=== PATIENT | female | born 1965 | race Two or more races ===

== ENCOUNTER 2024-02-11 12:04 | Inpatient (IN) | payer MEDICAID, OTHER ==
[~2024-02-11] VITALS: Ht 172.7 cm; Wt 112.0 kg
--- NOTE | 2024-02-11 12:28 | ED.PDOC ---
HPI Comments 58Y F with PMHx DM, anxiety, and depression presents to ED via EMS for chief complaint chest pain x2hrs. Pt described chest pain as pressure and is rated at a pain level of 5/10. Chest pain is substernal and non-radiating. Additional symptoms include SOB, headache, nausea, vomiting, and dizziness. Pt took Aspirin at home. Upon EMS arrival, BS 210. EMS provided pt with Zofran IV. Pt denies h/o stroke. Pt experienced similar chest pain many yrs ago. Pt is currently on abx A moxicillin for sinus infection. Chief Complaint: Chest Pain Time Seen by MD: 12:04 Primary Care Provider: SRAVAN Rizo Notes: Medications, Allergies Allergies: Coded Allergies: NO KNOWN ALLERGIES (Unverified , 02/11/24) Information Source: Patient Mode of Arrival: EMS Brought in by: EMS Severity: Mild Timing: Hours Duration: Since onset Prehospital treatment: Other (IV Zofran) Location: Substernal Radiation: No Radiation Quality: Pressure Onset: At Rest Cardiac Risk Factors: Diabetes PE Risk Factors: None History of: None Modifying Factors: Nothing Associated Signs and Symptoms: SOB, Other Past Medical History PAST MEDICAL HISTORY: Anxiety, Depression, DM Surgical History: Denies all surgeries 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 Family History Family History: Unknown Social History Smoker: Unknown Alcohol: Unknown Drugs: Unknown Lives In: Home Constitutional: denies: chills, diaphoresis, fatigue, fever, malaise, sweats, weakness, others EENTM: denies: blurred vision, double vision, ear bleeding, ear discharge, ear drainage, ear pain, ear ringing, eye pain, eye redness, hearing loss, mouth pain, mouth swelling, nasal discharge, nose bleeding, nose congestion, nose pain, photophobia, tearing, throat pain, throat swelling, voice changes, others Respiratory: reports: shortness of breath; denies: cough, hemoptysis, orthopnea, SOB at rest, SOB with excertion, stridor, wheezing, others Cardiovascular: reports: chest pain; denies: dizzy spells, diaphoresis, Dyspnea on exertion, edema, irregular heart beat, left arm pain, lightheadedness, palpitations, PND, syncope, others Gastrointestinal: reports: nausea; denies: abdomen distended, abdominal pain, blood streaked bowels, constipated, diarrhea, dysphagia, difficulty swallowing, hematemesis, melena, poor appetite, poor fluid intake, rectal bleeding, rectal pain, vomiting, others Genitourinary: denies: abnormal vagina bleeding, burning, dyspareunia, dysuria, flank pain, frequency, hematuria, incontinence, pain, , vagina discharge, urgency, others Neurological: reports: dizziness, headache; denies: fainting, left sided numbness, left sided weakness, numbness, paresthesia, pre-existing deficit, right sided numbness, right sided weakness, seizure, speech problems, tingling, tremors, weakness, others Musculoskeletal: denies: back pain, gout, joint pain, joint swelling, muscle pain, muscle stiffness, neck pain, others Integumetry: denies: bruises, change in color, change in hair/nails, dryness, laceration, lesions, lumps, rash, wounds, others Allergic/Immunocompromised: denies: Difficulty Healing, Frequent Infections, Hives, Itching, others Hematologic/Lymphatic: denies: anemia, blood clots, easy bleeding, easy brui sing, swollen glands, others Endocrine: denies: excessive hunger, excessive sweating, excessive thirst, ex cessive urination, flushing, intolerance to cold, intolerance to heat, unexplained weight gain, unexplained weight loss, others Psychiatric: denies: anxiety, bipolar disorder, depression, hopeless, panic disorder, schizophrenia, sleepless, suicidal, others All Other Systems: Reviewed and Negative Physical Exam General Appearance: Moderate Distress, Normal HEENT: Normal ENT Inspection, Pharynx Normal, TMs Normal Neck: Full Range of Motion, Non-Tender, Normal, Normal Inspection Respiratory: Chest Non-Tender, Lungs Clear, No Accessory Muscle Use, No Respiratory Distress, Normal Breath Sounds Cardiovascular: No Edema, No JVD, No Murmur, No Gallop, Normal Peripheral Pulses, Regular Rate/Rhythm Breast Exam: Deferred Gastrointestinal: No Organomegaly, Non Tender, No Pulsatile Mass, Normal Bowel Sounds, Soft Genitalia: Deferred Pelvic: Deferred Rectal: Deferred Extremities: No calf tenderness, Normal capillary refill, Normal inspection, Normal range of motion, Non-tender, No pedal edema Musculoskeletal : Apperance: Normal Neurologic: Alert, 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 Was a procedure done?: No CP Differential Dx Differential Diagnosis: A-fib, A-Flutter, Angina, Anxiety / Panic Attack, Electrolyte Disorder X-Ray, Labs, Meds, VS Vital Signs Date Time Temp Pulse Resp B/P (MAP) Pulse Ox O2 Delivery O2 Flow Rate FiO2 02/11/24 12:07 104 02/11/24 12:06 97.5 110 18 121/88 (99) 100 Lab Test 02/11/24 16:10 02/11/24 13:40 02/11/24 12:31 Range/Units Troponin I High Sensitivity Pending < 3 L < 3 L </=34 ng/L White Blood Count 20.7 H 4.4-10.8 10^3/uL Red Blood Count 5.68 H 4.0-5.20 10^6/uL Hemoglobin 16.9 H 12.2-16.2 g/dL Hematocrit 50.4 H 36.0-46.0 % Mean Corpuscular Volume 88.8 80.0-100.0 fL Mean Corpuscular Hemoglobin 29.7 28.0-32.0 pg Mean Corpuscular Hemoglobin Concent 33.5 32.0-36.0 g/dL Red Cell Distribution Width 14.6 H 11.8-14.3 % Platelet Count 285 140-450 10^3/uL Mean Platelet Volume 9.3 6.9-10.8 fL Neutrophils (%) (Auto) 83.8 H 37.0-80.0 % Lymphocytes (%) (Auto) 10.7 10.0-50.0 % Monocytes (%) (Auto) 3.9 0.0-12.0 % Eosinophils (%) (Auto) 1.2 0.0-7.0 % Basophils (%) (Auto) 0.4 0.0-2.0 % Neutrophils # (Auto) 17.3 H 1.6-8.6 10 ^3/uL Lymphocytes # (Auto) 2.2 0.4-5.4 10 ^3/uL Monocytes # (Auto) 0.8 0-1.3 10 ^3/uL Eosinophils # (Auto) 0.3 0-0.8 10 ^3/uL Basophils # (Auto) 0.1 0-0.2 10 ^3/uL Nucleated Red Blood Cells 0.1 % Sodium Level 140 136-145 mmol/L Potassium Level 3.5 3.5-5.1 mmol/L Chloride Level 106 98-107 mmol/L Carbon Dioxide Level 24 20-31 mmol/L Anion Gap 10 5-15 Blood Urea Nitrogen 14 9-23 mg/dL Creatinine 0.76 0.550-1.02 mg/dL Glomerular Filtration Rate Calc 92 >90 mL/min BUN/Creatinine Ratio 18.4 10.0-20.0 Serum Glucose 244 H 74-106 mg/dL Calcium Level 10.7 H 8.7-10.4 mg/dL Patient alert. Complaining of chest pain. Emotional. Tachycardia. Blood pressure within normal limits. Saturation pristine on room air. EKG reviewed does not show any acute changes. Continues to have chest pain. Was given aspirin. Was given nitro. Reviewed her previous visit. Explained to the patient. Continue cardiac monitoring. Time of 1ST Reevaluation: 12:34 Reevaluation 1ST: Unchanged Patient Education/Counseling: Diagnosis, Treatment Family Education/Counseling: No Family Present Departure 1 Departure Time of Disposition: 12:56 Impression: Primary Impression: Chest pain of unknown etiology Additional Impressions: Uncontrolled diabetes mellitus Qualified Codes: E13.65 - Other specified diabetes mellitus with hyperglycemia Sepsis Qualified Codes: A41.9 - Sepsis, unspecified organism Gastroenteritis Disposition: ADMITTED INPATIENT Admit to: Med Surg Condition: Guarded Critical Care Note Critical Care Time?: Yes (45 min-critical care time only) Stability Stability form required: No Heart Score Heart Score: Heart Score Response (Comments) Value History Slightly Suspicious 0 EKG Normal 0 Age 45-64 1 Risk Factors 1 or 2 risk factors 1 Troponin Normal limit 0 Total 2 I personally scribed for VENKATA FELIX MD ([email or web address]) on 02/11/24 at 12:28. Electronically submitted by Marleny Olson ([email or web address]). VENKATA FELIX MD Feb 11, 2024 12:28
--- NOTE | 2024-02-11 12:28 | ECG ---
[facility] Test Date: 2024-02-11 Test Time: 12:07:13 Pat Name: Richelle Sarmiento Department: er Room: [address] [place] [address] Gender: F Dice Person: luis : 1965 Requested By: VENKATA FELIX Order Number: [id number] Reading MD: Andres Turner Measurements Intervals [place] Rate: 104 P: 20 ND: 165 QRS: 32 QRSD: 103 T: 29 QT: 335 QTc: 441 Interpretive Statements Sinus tachycardia Probable left atrial enlargement Consider anterior infarct Baseline wander in lead(s) II,V1,V2,V3,V4,V5,V6 Electronically Signed On 02-21-2024 12:48:18 PST by Andres Turner Please click the below link to view image of tracing.
[2024-02-11 12:55] LABS: Basophils # (auto) 0.1 10 ^3/uL (0-0.2); Basophils % (auto) 0.4 % (0.0-2.0); Eosinophils # (auto) 0.3 10 ^3/uL (0-0.8); Eosinophils % (auto) 1.2 % (0.0-7.0); Hematocrit 50.4 % (36.0-46.0); Hemoglobin 16.9 g/dL (12.2-16.2); Lymphocytes # (auto) 2.2 10 ^3/uL (0.4-5.4); Lymphocytes % (auto) 10.7 % (10.0-50.0); Mean Corpuscular Hemoglobin 29.7 pg (28.0-32.0); Mean Corpuscular Hgb Conc. 33.5 g/dL (32.0-36.0); Mean Corpuscular Volume 88.8 fL (80.0-100.0); Monocytes # (auto) 0.8 10 ^3/uL (0-1.3); Monocytes % (auto) 3.9 % (0.0-12.0); Neutrophils # (auto) 17.3 10 ^3/uL (1.6-8.6); Neutrophils % (auto) 83.8 % (37.0-80.0); Nucleated Red Blood Cells % 0.1 %; Platelet Count (auto) 285 10^3/uL (140-450); Red Blood Cells 5.68 10^6/uL (4.0-5.20); Red Cell Distribution Width 14.6 % (11.8-14.3); White Blood Cell 20.7 10^3/uL (4.4-10.8)
[2024-02-11 13:04] LABS: Chloride 106 mmol/L (98-107); Potassium 3.5 mmol/L (3.5-5.1); Sodium 140 mmol/L (136-145)
[2024-02-11 13:05] LABS: Anion Gap 10 (5-15); Calcium 10.7 mg/dL (8.7-10.4); Carbon Dioxide 24 mmol/L (20-31)
[2024-02-11 13:10] LABS: BUN/Creatinine Ratio 18.4 (10.0-20.0); Blood Urea Nitrogen 14 mg/dL (9-23); Glucose 244 mg/dL (74-106)
[2024-02-11 17:09] VITALS: PULSE 130; RESP 19; O2SAT 96
--- NOTE | 2024-02-11 17:12 | DVHHP2 ---
History of Present Illness Reason for Visit: Chest pain of unknown etiology History of Present Illness The patient is a 58-year-old female with past medical history of anxiety, depression, and diabetes mellitus who presented to [facility] ED with complaint of chest pain. Patient reports symptoms progressively get worse with nonradiating substernal chest pain, rating 5/10 numeric scale, associated headache, shortness a breath, nausea, vomiting, dizziness, getting worse today that prompted this visit. Patient was seen and evaluated in the ED, laboratory data shows WBC 20.7, hemoglobin 16.9, hematocrit 50.4, platelets 285, sodium 140, potassium 3.5, BUN 14, creatinine 0.76, glucose 244, troponin 3, calcium 10.7. Patient was started on IV antibiotic regimen Rocephin, please see medication orders section in the computer. On my assessment, patient denied chest pain at this moment, no headache, no dizziness, no diaphoresis, no palpitation, no shortness of breath, no nausea, no vomiting at this moment, no fever, no chills. Patient was admitted for further evaluation and medical management. Past Medical History Anxiety, Depression, DM Past Surgical History Denies all surgeries Family History Reviewed, noncontributory to the management of this case. Past Social History The patient lives at home, denies smoking, alcohol or illicit drugs abuse. Review of Systems Constitutional: Yes: Weakness; No: Fever, Chills, Sweats, Malaise, Other Eyes: No: Pain, Vision change, Conjunctivae inflammation, Eyelid inflammation, Other, Redness ENT: No: Ear pain, Ear discharge, Nose pain, Nose discharge, Nose congestion, Mouth pain, Mouth swelling, Throat pain, Throat swelling, Other Respiratory: Shortness of breath; No: Cough, Dry, SOB with excertion, Wheezing, Hemoptysis, Pleuritic Pain, Sputum, Wheezing, Other Cardiovascular: Chest Pain; No: Palpitations, Orthopnea, Paroxysmal Noc. Dyspnea, Edema, Lt Headedness, Other Gastrointestinal: Nausea; No: Vomiting, Abdominal Pain, Diarrhea, Constipation, Melena, Hematochezia, Other Genitourinary: No Dysuria, No Frequency, No Incontinence, No Hematuria, No Retention, No Other Musculoskeletal: No: other, neck pain, shoulder pain, arm pain, back pain, hand pain, leg pain, foot pain Skin: No: Rash, Lesions, Jaundice, Bruising, Other Neurological: Other (Headache, dizziness.); No: Weakness, Numbness, Incoordination, Change in speech, Confusion, Seizures Allergies: Coded Allergies: NO KNOWN ALLERGIES (Unverified , 02/11/24) Exam Vital Signs Vital Signs Date Time Temp Pulse Resp B/P (MAP) Pulse Ox O2 Delivery O2 Flow Rate FiO2 02/11/24 17:09 129 18 160/92 (114) 96 02/11/24 12:06 97.5 General Appearance: Alert, Oriented X3, Cooperative, No acute distress HEENT: Atraumatic, PERRLA, EOMI, Mucous membr. moist/pink Respiratory: Clear to auscultation, Normal air movement Cardiovascular: Regular rate, Normal S1, Normal S2, No murmurs Abdominal: Normal bowel sounds, Soft, No tenderness, No hepatospenomegaly, No masses Extremities: No clubbing, No cyanosis, No edema, Normal pulses, No tenderness/swelling Skin: No rashes, No breakdown, No significant lesion Neuro: Normal gait, Normal speech, Strength at 5/5 X4 ext, Normal tone, Sensation intact, Cranial nerves 3-12 NL, Reflexes 2+ Psych/Mental Status: Mental status NL, Mood NL Labs/Xrays Labs Test 02/11/24 16:39 02/11/24 16:10 02/11/24 12:31 Range/Units Troponin I High Sensitivity < 3 L </=34 ng/L White Blood Count 20.7 H 4.4-10.8 10^3/uL Red Blood Count 5.68 H 4.0-5.20 10^6/uL Hemoglobin 16.9 H 12.2-16.2 g/dL Hematocrit 50.4 H 36.0-46.0 % Mean Corpuscular Volume 88.8 80.0-100.0 fL Mean Corpuscular Hemoglobin 29.7 28.0-32.0 pg Mean Corpuscular Hemoglobin Concent 33.5 32.0-36.0 g/dL Red Cell Distribution Width 14.6 H 11.8-14.3 % Platelet Count 285 140-450 10^3/uL Mean Platelet Volume 9.3 6.9-10.8 fL Neutrophils (%) (Auto) 83.8 H 37.0-80.0 % Lymphocytes (%) (Auto) 10.7 10.0-50.0 % Monocytes (%) (Auto) 3.9 0.0-12.0 % Eosinophils (%) (Auto) 1.2 0.0-7.0 % Basophils (%) (Auto) 0.4 0.0-2.0 % Neutrophils # (Auto) 17.3 H 1.6-8.6 10 ^3/uL Lymphocytes # (Auto) 2.2 0.4-5.4 10 ^3/uL Monocytes # (Auto) 0.8 0-1.3 10 ^3/uL Eosinophils # (Auto) 0.3 0-0.8 10 ^3/uL Basophils # (Auto) 0.1 0-0.2 10 ^3/uL Nucleated Red Blood Cells 0.1 % Sodium Level 140 136-145 mmol/L Potassium Level 3.5 3.5-5.1 mmol/L Chloride Level 106 98-107 mmol/L Carbon Dioxide Level 24 20-31 mmol/L Anion Gap 10 5-15 Blood Urea Nitrogen 14 9-23 mg/dL Creatinine 0.76 0.550-1.02 mg/dL Glomerular Filtration Rate Calc 92 >90 mL/min BUN/Creatinine Ratio 18.4 10.0-20.0 Serum Glucose 244 H 74-106 mg/dL Calcium Level 10.7 H 8.7-10.4 mg/dL Assessment/Plan Assessment/Plan Chest pain of unknown etiology Uncontrolled diabetes mellitus Generalized weakness Other specified diabetes mellitus with hyperglycemia Sepsis, unspecified organism Plan 1. Admit to telemetry unit 2. Breathing treatment 3. Pain control management 4. IV antibiotic management 5. Management of fluids and electrolytes 6. Consultation for hospitalist 7. Diagnostic test chest x-ray 8. DVT prophylaxis-on aspirin 9. Repeat labs CBC, CMP in a.m. 10. Home medication reviewed and reconciled 11. Continue with current medical management 12. Treatment plan discussed with patient and RN. Patient verbalized understanding. Plan discussed with: Patient, Other (RN) Problem List: (1) Chest pain of unknown etiology (2) Uncontrolled diabetes mellitus (3) Generalized weakness (4) Sepsis, unspecified organism (5) Other specified diabetes mellitus with hyperglycemia Date of Service: Feb 11, 2024 Billing Provider: MATILDA GOODWIN DNP Common Visit Codes: [id number] INP/OBS CARE (HIGH) MATILDA GOODWIN DNP Feb 11, 2024 17:12
[2024-02-11] MEDS ORDERED: DEXTROSE (50%) 50ML SYRG IV PRN (17:15)
[2024-02-11] MEDS ORDERED: NITROGLYCERIN 0.4 MG SL TAB SL PRN (17:15)
[2024-02-11] MEDS: SODIUM CHLORIDE 0.9% 1,000 ML IV ONE ×2 (17:16)
[2024-02-11] MEDS: metroNIDAZOLE 500MG/100ML 100 ML IV ONE (17:18)
[2024-02-11] MEDS: cefTRIAXone 1GM/50ML D5W 50 ML IV ONE (17:18)
[2024-02-11 17:29] LABS: Lactic Acid w/Reflex 4.4 mmol/L (0.4-2.0)
--- NOTE | 2024-02-11 18:25 | DVH ---
Exam: CT CT AB PEL WO CON-NO ORAL OR IV History: enteritis Comparison Study: None available at time of dictation. TECHNIQUE: Multidetector CT of the abdomen was performed from lung bases to pubic symphysis. Imaging was performed without IV contrast. Axial, coronal and sagittal multiplanar reformats were obtained fr om the axial data set by the technologist. Radiation Dose Information: CT Dose: CTDI volume is 22.23 mGy. Dose-length product is 1457.41 mGy*cm FINDINGS: Evaluation of solid organs is limited due to lack of intravenous contrast use. Findings: Lung Bases: No acute or significant lung base finding. Normal heart size. No pleural effusion. Tra ce pericardial effusion Liver: The liver is normal in size. No focal lesions. Gallbladder and Biliary Tree: Gallbladder has been surgically removed. Spleen: Unremarkable Pancreas: The pancreas is grossly normal in appearance. Adrenal Glands: Unremarkable Kidneys: Kidneys are grossly normal without calculi or hydronephrosis. Bladder: Grossly unremarkable for degree of distention. Bowel: The stomach is grossly normal in appearance. Fluid-filled stomach and nondilated but fluid-martin led small bowel consistent with gastroenteritis. Small bowel and colon are normal in caliber and dist ribution. The appendix is not visualized; however, no secondary findings of acute appendicitis ident ified. Ascites: Absent Lymphadenopathy: No mesenteric, retroperitoneal or periportal lymphadenopathy. Abdominal Wall and Mesentery: Unremarkable. Vasculature: The visualized abdominal aorta is normal in size and caliber. Evaluation of abdominal a nd pelvic vessels is limited due to lack of intravenous contrast. Pelvic Organs: Unremarkable Musculoskeletal: No aggressive focal bony lesions, acute fractures or dislocation. Soft tissues: Unremarkable IMPRESSION: 1. Trace pericardial effusion. 2. Fluid-filled stomach and small bowel without abnormal dilatation. Findings are consistent with gas troenteritis. 3. Gallbladder is been surgically removed. Radiation optimization: All CT scans at this facility use at least one of these dose optimization chasity hniques: automated exposure control mA and/or kV adjustment per patient size (includes targeted exam s where dose is matched to clinical indication) or iterative reconstruction.
[2024-02-11 20:04] LABS: Urine Bacteria None Seen /hpf (None Seen)
[2024-02-11 20:55] LABS: Urine Blood Negative /uL (Negative); Urine Clarity Clear (Clear); Urine Color Yellow (Yellow); Urine Protein, UAD Negative (Negative); Urine Specific Gravity 1.039 (1.001-1.035); Urine Urobilinogen Normal (Negative); Urine WBC 1 /hpf (0 - 5)
[2024-02-11] MEDS: HYDROcodone-ACET 5/325MG TAB PO PRN (21:16)
[2024-02-11] MEDS: ACCU-CHEK COMFORT CURVE STRIP VI SCH (22:12)
[2024-02-11] MEDS: SODIUM CHLOR 0.9% PF (SALINE LOCK) 10ML VIAL/SYR IV SCH (22:13)
[2024-02-11] MEDS: metroNIDAZOLE 500MG/100ML 100 ML IV SCH (22:17)
[2024-02-11] MEDS: InsuLIN REG 1unit/0.01ml Soln (100units/ml) SC SCH (22:19)
[2024-02-12] MEDS: ONDANSETRON HCL 4 MG/2 ML VIAL IV PRN (01:53)
[2024-02-12] MEDS: MORPHINE SULFATE INJ 2 MG/ml SYRG IV PRN (01:55)
[2024-02-12 04:45] LABS: Basophils # (auto) 0 10 ^3/uL (0-0.2); Basophils % (auto) 0.3 % (0.0-2.0); Eosinophils # (auto) 0.1 10 ^3/uL (0-0.8); Eosinophils % (auto) 0.7 % (0.0-7.0); Hematocrit 40.7 % (36.0-46.0); Hemoglobin 13.9 g/dL (12.2-16.2); Lymphocytes # (auto) 0.9 10 ^3/uL (0.4-5.4); Lymphocytes % (auto) 10.5 % (10.0-50.0); Mean Corpuscular Hemoglobin 30.3 pg (28.0-32.0); Mean Corpuscular Hgb Conc. 34.1 g/dL (32.0-36.0); Mean Corpuscular Volume 88.8 fL (80.0-100.0); Monocytes # (auto) 0.6 10 ^3/uL (0-1.3); Monocytes % (auto) 6.8 % (0.0-12.0); Neutrophils # (auto) 6.9 10 ^3/uL (1.6-8.6); Neutrophils % (auto) 81.7 % (37.0-80.0); Platelet Count (auto) 177 10^3/uL (140-450); Red Blood Cells 4.58 10^6/uL (4.0-5.20); Red Cell Distribution Width 14.6 % (11.8-14.3); White Blood Cell 8.5 10^3/uL (4.4-10.8)
[2024-02-12 05:05] LABS: Alanine Aminotransferase 214 U/L (7-40); Albumin 3.5 g/dL (3.2-4.8); Alkaline Phosphatase 115 U/L (46-116); Anion Gap 5 (5-15); Aspartate Aminotransferase 551 U/L (13-40); Blood Urea Nitrogen 11 mg/dL (9-23); Calcium 9.1 mg/dL (8.7-10.4); Carbon Dioxide 25 mmol/L (20-31); Chloride 110 mmol/L (98-107); Glucose 165 mg/dL (74-106); Potassium 3.7 mmol/L (3.5-5.1); Sodium 140 mmol/L (136-145); Total Protein 5.5 g/dL (5.7-8.2)
[2024-02-12] MEDS: InsuLIN REG 1unit/0.01ml Soln (100units/ml) SC SCH (06:43)
[2024-02-12 07:27] VITALS: PULSE 93; RESP 20; O2SAT 100
[2024-02-12] MEDS: cefTRIAXone 1GM/50ML D5W 50 ML IV SCH (09:10)
[2024-02-12] MEDS: ASPirin 81 mg TAB PO SCH (10:09)
[2024-02-12] MEDS: PANTOPRAZOLE 40 MG/10 ML VIAL INJ IV SCH (10:09)
[2024-02-12] MEDS: ACETAMINOPHEN 325 MG TAB PO PRN (11:34)
[2024-02-12 12:48] VITALS: BP 132/72; PULSE 76; PULSE 80; RESP 17; TEMP 98.8; O2SAT 98
--- NOTE | 2024-02-12 13:25 | DVHPN2 ---
Changes from previous H/P or p: No Changes Eyes: No Pain, No Vision change, No Conjunctivae inflammation, No Eyelid inflammation, No Other, No Redness ENT: No Ear pain, No Ear discharge, No Nose pain, No Nose discharge, No Nose congestion, No Mouth pain, No Mouth swelling, No Throat pain, No Throat swelling, No Other Cardiovascular: Chest Pain; No Palpitations, No Orthopnea, No Paroxysmal Noc. Dyspnea, No Edema, No Lt Headedness, No Other Respiratory: No Cough, No Dry; Shortness of breath; No SOB with excertion, No Wheezing, No Hemoptysis, No Pleuritic Pain, No Sputum, No Other Gastrointestinal: Nausea; No Vomiting, No Abdominal Pain, No Diarrhea, No Constipation, No Melena, No Hematochezia, No Other Genitourinary: No Dysuria, No Frequency, No Incontinence, No Hematuria, No Retention, No Other Musculoskeletal: No other, No neck pain, No shoulder pain, No arm pain, No back pain, No hand pain, No leg pain, No foot pain Skin: No Rash, No Lesions, No Jaundice, No Bruising, No Other Objective Vitals Vital Signs Date Time Temp Pulse Resp B/P (MAP) Pulse Ox O2 Delivery O2 Flow Rate FiO2 02/12/24 12:00 84 02/12/24 12:00 18 121/73 (89) 98 02/12/24 07:27 Nasal Cannula* 2 28 02/11/24 20:00 98.0 98.0 Intake/Output Intake and Output 02/12/24 07:00 Intake Total 2410 ml Balance 2410 ml Intake IV Total 2410 ml Medications Current Medications Medications Dose Ordered Sig/Alber Route Start Time Stop Time Status Last Admin Dose Admin Aspirin 81 mg DAILY PO 02/12/24 10:00 02/12/24 10:09 81 MG Ceftriaxone Sodium 50 ml @ 100 mls/hr DAILY@09 IV 02/12/24 09:00 02/12/24 09:10 100 MLS/HR Pantoprazole Sodium 40 mg DAILY IV 02/12/24 10:00 02/12/24 10:09 40 MG Diagnostic Test (Pha) 1 strip ACHS 02/11/24 22:00 02/12/24 11:25 1 STRIP Insulin Human Regular HS SC 02/11/24 22:00 02/11/24 22:19 6 UNITS Insulin Human Regular AC SC 02/12/24 07:00 02/12/24 11:28 3 UNITS Dextrose 50 ml UD PRN IV 02/11/24 17:15 Sodium Chloride 10 ml Q8HR IV 02/11/24 22:00 02/12/24 05:53 10 ML Acetaminophen/ Hydrocodone Bitart 1 tab Q4HP PRN PO 02/11/24 17:15 02/12/24 10:17 1 TAB Ondansetron HCl 4 mg Q4HP PRN IV 02/11/24 17:15 02/12/24 01:53 4 MG Docusate Sodium 100 mg BIDPRN PRN PO 02/11/24 17:15 Acetaminophen 650 mg Q6HP PRN PO 02/11/24 17:15 02/12/24 11:34 650 MG Nitroglycerin 0.4 mg Q5MINP PRN SL 02/11/24 17:15 Morphine Sulfate 2 mg Q30M PRN IV 02/11/24 17:15 02/12/24 04:37 2 MG Metronidazole 100 ml @ 100 mls/hr Q8HR IV 02/11/24 22:00 02/12/24 05:53 100 MLS/HR Laboratory Results Laboratory Tests 02/12/24 04:16 Chemistry Test 02/12/24 04:16 Albumin 3.5 g/dL (3.2-4.8) Calcium Level 9.1 mg/dL (8.7-10.4) Total Protein 5.5 g/dL (5.7-8.2) L LFT Test 02/12/24 04:16 Alanine Aminotransferase (ALT) 214 U/L (7-40) H Alkaline Phosphatase 115 U/L (46-116) Aspartate Amino Transferase (AST) 551 U/L (13-40) H Total Bilirubin 1.0 mg/dL (0.2-1.0) Urinalysis Test 02/11/24 20:04 Urine Color Yellow (Yellow) Urine Clarity Clear (Clear) Urine pH 5.0 (5.0-9.0) Urine Specific [place] 1.039 (1.001-1.035) Urine Protein Negative (Negative) Urine Ketones 1+ (Negative) H Urine Blood Negative /uL (Negative) Urine Nitrite Negative (Negative) Urine Bilirubin 2+ (Negative) H Urine Urobilinogen Normal mg/dL (Negative) Urine Leukocyte Esterase Negative /uL (Negative) Urine RBC 1 /hpf (0 - 4) Urine WBC 1 /hpf (0 - 5) Urine Squamous Epithelial Cells Few /hpf (<5) Urine Bacteria None seen /hpf (None Seen) Urine Glucose 4+ mg/dL (Normal) H Labs and/or images reviewed: Labs reviewed by me, Image(s) reviewed by me Assessment/Plan Assessment/Plan Chest Pain negative troponins, consult for Dr Luo Anxiety Depression Diabetes Elevated liver enzymes: GI consult Acute lactic acidosis Dehydration Acute gastroenteritis History of cholecystectomy Time spent 50 minutes Plan discussed with: Patient My Orders Orders - MARIELENA JONES MD Procedure Category Date Status Time * Gi Dvh Assistant Chief Nursing Officer CONS 02/12/24 Transmitted 13:20 * Cardiology Consult CONS 02/12/24 Verified 13:22 Date of Service: Feb 12, 2024 Billing Provider: MARIELENA JONES MD Common Visit Codes: [id number] INP/OBS CARE(HIGH) MARIELENA JONES MD Feb 12, 2024 13:25
--- NOTE | 2024-02-12 14:00 | DVHINCON2 ---
GI Consult Consult Note GI consult note Date of Consultation: 02/12/2024 Chief Complaint: Elevated LFTs Referring Physician: Dr. Mark Anthony Jones H&P: 58-year-old female admitted with chest pain Patient denies abdominal pain. Patient has nausea. No vomiting or hematemesis Last bowel movement four days ago, but since being admitted patient has two loose stools. No melena or red blood in stool Patient has history of elevated LFTs, treated with Humira for psoriatic arthritis, which was stopped three months ago due to elevated LFTs Patient recently has been taking more Tylenol, and Sawyer also No history of alcohol use. No history of hepatitis Past Medical History: Anxiety, depression, DM, psoriatic arthritis Past Surgical History: Denies Social History: NO smoking, drinking ETOH .+ marijuana Family History: Noncontributory Review of Systems: Constitutional: no fever, chill, weight loss HEENT: no eye pain, no hearing loss, no oral lesion, no scleral icterus Heart: no chest pain, no chest pressure Lung: no cough, no dyspnea with exertion Abdomen: see HPI Physical exam: General: NAD, AAOX3 Chest: lung jama clear to auscultation Heart: RRR, no murmur Abdomen: non-distended, no tenderness to palpation, +BS Labs: Labs Test 02/12/24 11:24 02/12/24 04:16 02/11/24 20:04 02/11/24 18:26 Range/Units POC Glucose 186 H 70-106 mg/dl White Blood Count 8.5 # 4.4-10.8 10^3/uL Red Blood Count 4.58 4.0-5.20 10^6/uL Hemoglobin 13.9 # 12.2-16.2 g/dL Hematocrit 40.7 # 36.0-46.0 % Mean Corpuscular Volume 88.8 80.0-100.0 fL Mean Corpuscular Hemoglobin 30.3 28.0-32.0 pg Mean Corpuscular Hemoglobin Concent 34.1 32.0-36.0 g/dL Red Cell Distribution Width 14.6 H 11.8-14.3 % Platelet Count 177 140-450 10^3/uL Mean Platelet Volume 9.0 6.9-10.8 fL Neutrophils (%) (Auto) 81.7 H 37.0-80.0 % Lymphocytes (%) (Auto) 10.5 10.0-50.0 % Monocytes (%) (Auto) 6.8 0.0-12.0 % Eosinophils (%) (Auto) 0.7 0.0-7.0 % Basophils (%) (Auto) 0.3 0.0-2.0 % Neutrophils # (Auto) 6.9 1.6-8.6 10 ^3/uL Lymphocytes # (Auto) 0.9 0.4-5.4 10 ^3/uL Monocytes # (Auto) 0.6 0-1.3 10 ^3/uL Eosinophils # (Auto) 0.1 0-0.8 10 ^3/uL Basophils # (Auto) 0 0-0.2 10 ^3/uL Nucleated Red Blood Cells 0.0 % Sodium Level 140 136-145 mmol/L Potassium Level 3.7 3.5-5.1 mmol/L Chloride Level 110 H 98-107 mmol/L Carbon Dioxide Level 25 20-31 mmol/L Anion Gap 5 5-15 Blood Urea Nitrogen 11 9-23 mg/dL Creatinine 0.55 0.550-1.02 mg/dL Glomerular Filtration Rate Calc 108 >90 mL/min BUN/Creatinine Ratio 20.0 10.0-20.0 Serum Glucose 165 H 74-106 mg/dL Calcium Level 9.1 8.7-10.4 mg/dL Total Bilirubin 1.0 0.2-1.0 mg/dL Aspartate Amino Transferase (AST) 551 H 13-40 U/L Alanine Aminotransferase (ALT) 214 H 7-40 U/L Alkaline Phosphatase 115 46-116 U/L Total Protein 5.5 L 5.7-8.2 g/dL Albumin 3.5 3.2-4.8 g/dL Urine Color Yellow Yellow Urine Clarity Clear Clear Urine pH 5.0 5.0-9.0 Urine Specific [place] 1.039 H 1.001-1.035 Urine Protein Negative Negative Urine Ketones 1+ H Negative Urine Blood Negative Negative /uL Urine Nitrite Negative Negative Urine Bilirubin 2+ H Negative Urine Urobilinogen Normal Negative mg/dL Urine Leukocyte Esterase Negative Negative /uL Urine RBC 1 0 - 4 /hpf Urine WBC 1 0 - 5 /hpf Urine Squamous Epithelial Cells Few <5 /hpf Urine Bacteria None seen None Seen /hpf Urine Glucose 4+ H Normal mg/dL Lactic Acid Level 4.5 *H 0.4-2.0 mmol/L Test 02/11/24 16:10 Range/Units Troponin I High Sensitivity < 3 L </=34 ng/L Imaging: CT abdomen pelvis IMPRESSION: 1. Trace pericardial effusion. 2. Fluid-filled stomach and small bowel without abnormal dilatation. Findings are consistent with gastroenteritis. 3. Gallbladder is been surgically removed. Assessment: Elevated LFTs possible secondary to medication use Acute gastroenteritis Chest pain Plan: Discussed with Dr. Huerta Hepatitis panel Tylenol level Monitor lab Stool for WBC, bacteria culture and C diff Continue Flagyl DC hepatotoxic medications recommended We will continue to monitor the patient Discussed plan with patient and RN Thank you for this consult Date of Service: Feb 12, 2024 Billing Provider: KELLY JONES Common Visit Codes: CONSULT ONLY Consultation Codes: [id number] CONSULT <45MIN KELLY JONES Feb 12, 2024 14:00
[2024-02-12] MEDS ORDERED: METF-370 PO (14:37)
[2024-02-12] MEDS ORDERED: PREG100C PO (14:37)
[2024-02-12] MEDS ORDERED: CHOLCAP11 PO (14:39)
[2024-02-12] MEDS ORDERED: [UNRECOGNIZED DRUG - CODE] PO (14:40)
[2024-02-12] MEDS ORDERED: BREX1TAB4 PO (14:40)
[2024-02-12] MEDS ORDERED: VILA20TA PO (14:41)
[2024-02-12] MEDS ORDERED: PRAV20TA3 PO (14:42)
[2024-02-12] MEDS ORDERED: OMEP20TA PO (14:42)
[2024-02-12] MEDS ORDERED: ASPI-543 PO (14:43)
[2024-02-12] MEDS ORDERED: CETI-195 PO (14:43)
[2024-02-12] MEDS ORDERED: HYDR-4902 PO (14:44)
[2024-02-12] MEDS ORDERED: CYCL-611 PO (14:45)
[2024-02-12] MEDS ORDERED: LISI-275 PO (14:45)
--- NOTE | 2024-02-12 15:10 | DVH ---
ULTRASOUND ABDOMEN LIMITED INDICATION: Abnormal LFTs.. TECHNIQUE: Multiple real-time sonographic images of the abdomen were obtained. COMPARISON: None FINDINGS: The visualized liver parenchyma appears echogenic consistent with steatosis. . The liver measures 17.4 cm. No discrete hepatic lesion or intrahepatic biliary ductal dilatation is identified. Gallbladder is surgically absent. The common biliary duct is not dilated. The right kidney measures 12.3 cm length. No sonographic evidence of nephrolithiasis or hydronephro sis. Pancreas is obscured by bowel gas. IMPRESSION: 1. Hepatic steatosis. 2. Cholecystectomy. HS:Y
[2024-02-12 15:20] LABS: Alanine Aminotransferase 730 U/L (7-40); Albumin 3.8 g/dL (3.2-4.8); Alkaline Phosphatase 202 U/L (46-116); Anion Gap 4 (5-15); BUN/Creatinine Ratio 10.3 (10.0-20.0); Blood Urea Nitrogen 7 mg/dL (9-23); Calcium 9.7 mg/dL (8.7-10.4); Carbon Dioxide 28 mmol/L (20-31); Chloride 108 mmol/L (98-107); Glucose 181 mg/dL (74-106); Potassium 3.7 mmol/L (3.5-5.1); Sodium 140 mmol/L (136-145); Total Protein 6.1 g/dL (5.7-8.2)
[2024-02-12 15:34] LABS: Aspartate Aminotransferase 1035 U/L (13-40)
[2024-02-12] MEDS: IBUPROFEN 400 MG TAB PO PRN (16:48)
[2024-02-12] MEDS: METOCLOPRAMIDE HCL 5MG/ml INJ 2ml VIAL IV PRN (16:48)
[2024-02-12 17:00] VITALS: BP 101/64; PULSE 77; RESP 17; TEMP 98.3; O2SAT 95
[2024-02-12 17:35] LABS: Magnesium 1.9 mg/dL (1.6-2.6)
[2024-02-12 17:37] LABS: Phosphorus 1.9 mg/dL (2.4-5.1)
--- NOTE | 2024-02-12 17:58 | DVHINCON2 ---
Date Seen: Feb 12, [address] Townsend Reason for Consultation Chest pain with negative troponin History of Present Illness Richelle Sarmiento is a 58-year-old female patient who presents to the ED with complaint of right-sided oppressive headache intensity 10/10 which started the day of her admission, which later triggered nausea and retrosternal oppressive chest pain in functional class four, intensity 5-6/10 which radiated towards back, had no alleviating or aggravating factors. Patient also mentions constipation four days before her admission associated with abdominal pain, fever and chills. Patient recently completed treatment for sinus infection with steroids and antibiotic (amoxicillin) seven days before her admission. Denies palpitation, syncope, dyspnea, vomiting, bleeding, sick contacts, recent travel, dysuria and motor or sensory deficits. Past medical history: Diabetes, hypertension, anxiety, depression, psoriatic arthritis, polyneuropathy in bilateral upper and lower limbs, per patient had irregular heartbeat during childhood which spontaneously resolved. Vitamin-D deficiency. Surgical history: 2001 cholecystectomy Family history: Father had history of CABG and multiple stent placement at the age of 50s. Mother at age of 16 after giving . Social history: Lives in [place] with and daughter. Currently smokes weed (one to do times a day) denies tobacco, alcohol and other drug abuse Allergies: Denies Home medication: Aspirin, brexpiparazol, cetirizine, cholecalciferol, cyclobenzaprine, etodolac, hydrocodone, lisinopril 5 mg p.o. daily, metformin 500 mg p.o. b.i.d., omeprazole, pregabalin, vilazodone, did receive Humira (last dose three months ago, did not tolerate due to abdominal discomfort) Patient seen and examined at bedside. Currently still complaining of excruciating headache and nausea. Have ordered head CT with contrast to evaluate complication of unresolved sinusitis. Past Medical History Per HPI Past Surgical History Per HPI Family History: Cardiovascular disease G8 FATHER Family History Per HPI Social History Per HPI Allergies: Coded Allergies: NO KNOWN ALLERGIES (Unverified , 02/11/24) Home Meds Reported Medications Lisinopril (Lisinopril) 5 Mg Tab, 5 MG PO DAILY for 30 Days, MG 02/12/24 Cyclobenzaprine HCl (Cyclobenzaprine Hydrochlo) 10 Mg Tab, 10 MG PO, TAB 02/12/24 Hydrocodone-Acetaminophen (Hydrocodone Bitartrate/AC 5-325 mg) 1 Tab Tab, 1 TAB PO, TAB 02/12/24 Cetirizine HCl (Allergy) 10 Mg Tab, 10 MG PO, TAB 02/12/24 Aspirin (Aspir-Low) 81 Mg Tab, 81 MG PO DAILY for 30 Days, MG 02/12/24 Pravastatin Sodium (PRAVACHOL TABLET) 20 Mg Tb, 1 TAB PO DAILY, #30 TAB 5 Refills 02/12/24 Omeprazole (Gnp Omeprazole) 20 Mg Tab, 40 MG PO, TAB 02/12/24 Vilazodone Hcl (VIIBRYD) 20 Mg Tab, 1 TAB PO DAILY, #30 TAB 5 Refills 02/12/24 Etodolac (Etodolac Er) 400 Mg Tab, 400 MG PO, TAB 02/12/24 Brexpiprazole (Rexulti) 2 Mg Tab, 2 MG PO, TAB 02/12/24 Cholecalciferol (D 5000) 5,000 Unit Cap, 5000 UNIT PO, CAP 02/12/24 Pregabalin (Lyrica) 100 Mg Cap, 1 CAP PO DAILY, #60 CAP 2 Refills 02/12/24 Metformin Hydrochloride (Metformin Hcl) 500 Mg Tab, 500 MG PO IBID for 30 Days, MG 02/12/24 Current Medications Current Medications Medications (Trade) Dose Ordered Sig/Alber Route PRN Reason Start Time Stop Time Status Last Admin Aspirin 81 mg DAILY PO 02/12/24 10:00 02/12/24 10:09 Ceftriaxone Sodium 50 ml @ 100 mls/hr DAILY@09 IV 02/12/24 09:00 02/12/24 09:10 Pantoprazole Sodium (Protonix) 40 mg DAILY IV 02/12/24 10:00 02/12/24 10:09 Diagnostic Test (Pha) (Accu-Chek Comfort Curve T) 1 strip ACHS 02/11/24 22:00 02/12/24 11:25 Insulin Human Regular (InsuLIN R) HS SC 02/11/24 22:00 02/11/24 22:19 Insulin Human Regular (InsuLIN R) AC SC 02/12/24 07:00 02/12/24 11:28 Sodium Chloride (Saline Lock Ns) 10 ml Q8HR IV 02/11/24 22:00 02/12/24 14:00 Metronidazole 100 ml @ 100 mls/hr Q8HR IV 02/11/24 22:00 02/12/24 14:47 Ibuprofen (Motrin Tablet) 400 mg Q8HP PRN PO MODERATE PAIN (4-6 PAIN SCALE) 02/12/24 16:30 02/12/24 16:48 Metoclopramide HCl (Reglan Injection) 5 mg Q8HPRN PRN IV NAUSEA / VOMITING 02/12/24 16:30 02/12/24 16:48 Review of Systems Per HPI Vital Signs Vital Signs Date Time Temp Pulse Resp B/P (MAP) Pulse Ox O2 Delivery O2 Flow Rate FiO2 02/12/24 12:00 84 02/12/24 12:00 18 121/73 (89) 98 02/12/24 07:27 Nasal Cannula* 2 28 02/11/24 20:00 98.0 98.0 Physical Exam Patient lying in bed, in no acute distress General: Lucid, afebrile, mucosae are moist Cardiovascular: Normal S1 and S2. No murmurs, gallops or rubs Respiratory: Normal ventilation mechanics. Clear lung sounds on auscultation Abdomen: Soft, nontender, no organomegaly, normal bowel sounds. Epigastric pain on palpation MSK/skin: Mobilizes 4 limbs. Skin is dry and warm Neurological: Oriented in 3 spheres. No motor no sensitive deficits. Pupils are isocoric and reactive Labs/Diagnostic Data Labs Test 02/12/24 17:10 02/12/24 16:45 02/12/24 14:39 02/12/24 04:16 Range/Units POC Glucose 183 H 70-106 mg/dl Lactic Acid Level 1.5 0.4-2.0 mmol/L Phosphorus Level 1.9 L 2.4-5.1 mg/dL Magnesium Level 1.9 1.6-2.6 mg/dL Ammonia 10 L 11-32 umol/L Triglycerides Level 72 < 150 mg/dL Cholesterol Level 102 < 200 mg/dL LDL Cholesterol 29 < 100 mg/dL HDL Cholesterol 52 40-59 mg/dL Vitamin B12 Level 1456 H 211-911 pg/mL Sodium Level 140 136-145 mmol/L Potassium Level 3.7 3.5-5.1 mmol/L Chloride Level 108 H 98-107 mmol/L Carbon Dioxide Level 28 20-31 mmol/L Anion Gap 4 L 5-15 Blood Urea Nitrogen 7 L 9-23 mg/dL Creatinine 0.68 0.550-1.02 mg/dL Glomerular Filtration Rate Calc 102 >90 mL/min BUN/Creatinine Ratio 10.3 10.0-20.0 Serum Glucose 181 H 74-106 mg/dL Calcium Level 9.7 8.7-10.4 mg/dL Total Bilirubin 1.0 0.2-1.0 mg/dL Aspartate Amino Transferase (AST) 1035 H 13-40 U/L Alanine Aminotransferase (ALT) 730 H 7-40 U/L Alkaline Phosphatase 202 H 46-116 U/L Total Protein 6.1 5.7-8.2 g/dL Albumin 3.8 3.2-4.8 g/dL Acetaminophen Level 9.0 L 10.0-20.0 UG/ML White Blood Count 8.5 # 4.4-10.8 10^3/uL Red Blood Count 4.58 4.0-5.20 10^6/uL Hemoglobin 13.9 # 12.2-16.2 g/dL Hematocrit 40.7 # 36.0-46.0 % Mean Corpuscular Volume 88.8 80.0-100.0 fL Mean Corpuscular Hemoglobin 30.3 28.0-32.0 pg Mean Corpuscular Hemoglobin Concent 34.1 32.0-36.0 g/dL Red Cell Distribution Width 14.6 H 11.8-14.3 % Platelet Count 177 140-450 10^3/uL Mean Platelet Volume 9.0 6.9-10.8 fL Neutrophils (%) (Auto) 81.7 H 37.0-80.0 % Lymphocytes (%) (Auto) 10.5 10.0-50.0 % Monocytes (%) (Auto) 6.8 0.0-12.0 % Eosinophils (%) (Auto) 0.7 0.0-7.0 % Basophils (%) (Auto) 0.3 0.0-2.0 % Neutrophils # (Auto) 6.9 1.6-8.6 10 ^3/uL Lymphocytes # (Auto) 0.9 0.4-5.4 10 ^3/uL Monocytes # (Auto) 0.6 0-1.3 10 ^3/uL Eosinophils # (Auto) 0.1 0-0.8 10 ^3/uL Basophils # (Auto) 0 0-0.2 10 ^3/uL Nucleated Red Blood Cells 0.0 % Test 02/11/24 20:04 02/11/24 16:10 Range/Units Urine Color Yellow Yellow Urine Clarity Clear Clear Urine pH 5.0 5.0-9.0 Urine Specific [place] 1.039 H 1.001-1.035 Urine Protein Negative Negative Urine Ketones 1+ H Negative Urine Blood Negative Negative /uL Urine Nitrite Negative Negative Urine Bilirubin 2+ H Negative Urine Urobilinogen Normal Negative mg/dL Urine Leukocyte Esterase Negative Negative /uL Urine RBC 1 0 - 4 /hpf Urine WBC 1 0 - 5 /hpf Urine Squamous Epithelial Cells Few <5 /hpf Urine Bacteria None seen None Seen /hpf Urine Glucose 4+ H Normal mg/dL Troponin I High Sensitivity < 3 L </=34 ng/L Microbiology Date/Time Source Procedure Growth Status 02/11/24 16:39 Blood Blood Culture - Preliminary NO GROWTH AFTER 24 HOURS OF INCUBATION. Resulted Assessment Sepsis probably secondary to gastroenteritis versus unresolved sinusitis Epigastralgia probably secondary to Gastroenteritis Rule out acute coronary syndrome Unresolved sinusitis Transaminitis Hypertension Diabetes Anxiety Depression Psoriatic arthritis Polyneuropathy Plan/Recommendation EKG shows normal sinus rhythm with bad progression of precordial R's, no ST alteration. Troponin negative x3, chest pain probable noncardiac (reproduces we will palpation, located more in epigastrium). Ordered echocardiogram Ordered head CT to evaluate complication of sinusitis. IV antibiotic per hospitalist GI consultation appreciated. Avoid hepatotoxic medication this point. (gold statins) Discussed case with Dr. Stiles, patient and nurses: Patient has precordial pain and presses noncardiac, EKG shows no ST alteration in troponin negative x3. Pending echocardiogram. Epigastric pain could be secondary to gastroenteritis versus gastritis. Plan discussed with: Patient, Other (Nurses) Date of Service: Feb 12, 2024 Billing Provider: FAMILIA STILES MD Cardiology Common Codes: [id number] INP/OBS CARE (High), [id number] CARE 30-74 MIN JENNIFER BOUCHER RESIDENT Feb 12, 2024 17:58
[2024-02-12 18:25] LABS: INR 1.06 (0.9-1.15); Prothrombin Time 11.2 sec (9.3-11.8)
[2024-02-12 20:00] VITALS: PULSE 78; PULSE 82; RESP 18; O2SAT 96
[2024-02-12 21:00] VITALS: BP 104/62; PULSE 82; RESP 18; TEMP 98.3; O2SAT 96
[2024-02-12] MEDS: DOCUSATE SOD 100 MG CAP PO PRN (21:52)
[2024-02-13] VITALS (7 sets, daily range): BP systolic 101–150; BP diastolic 56–76; PULSE 64–85; RESP 16–20; TEMP 97.7–98.5; O2SAT 95–98
[2024-02-13] MEDS: IOHEXOL 300 MG/ML 100ML BOTTLE IJ ONE (08:25)
--- NOTE | 2024-02-13 08:51 | DVH ---
EXAM: XY CHEST TWO VIEWS ROUTINE CLINICAL HISTORY: sepsis lactic acidosis COMPARISON: None TECHNIQUE: Frontal and lateral view of the chest was obtained FINDINGS: Lines and Tubes: None Lungs: No focal consolidation. Pleura: No effusion. No pneumothorax. Cardiomediastinal contours: Unremarkable Bones: No acute osseous abnormality. IMPRESSION: 1. No acute cardiopulmonary disease. HS:Y
--- NOTE | 2024-02-13 08:56 | DVHPNRES ---
Progress Note Date Seen: Feb 13, 2024 Resident Creating Document: JENNIFER BOUCHER RESIDENT Medical Necessity Reason Pt with a Central, PICC or Fol: No Subjective Review of Systems Richelle Sarmiento is a 58-year-old female patient who presents to the ED with complaint of right-sided oppressive headache intensity 10/10 which started the day of her admission, which later triggered nausea and retrosternal oppressive chest pain in functional class four, intensity 5-6/10 which radiated towards back, had no alleviating or aggravating factors. Patient also mentions constipation four days before her admission associated with abdominal pain, fever and chills. Patient recently completed treatment for sinus infection with steroids and antibiotic (amoxicillin) seven days before her admission. Denies palpitation, syncope, dyspnea, vomiting, bleeding, sick contacts, recent travel, dysuria and motor or sensory deficits. Past medical history: Diabetes, hypertension, anxiety, depression, psoriatic arthritis, polyneuropathy in bilateral upper and lower limbs, per patient had irregular heartbeat during childhood which spontaneously resolved. Vitamin-D deficiency. Surgical history: 2002 cholecystectomy Family history: Father had history of CABG and multiple stent placement at the age of 50s. Mother at age of 16 after giving . Social history: Lives in [place] with and daughter. Currently smokes weed (one to do times a day) denies tobacco, alcohol and other drug abuse Allergies: Denies Home medication: Aspirin, brexpiparazol, cetirizine, cholecalciferol, cyclobenzaprine, etodolac, hydrocodone, lisinopril 5 mg p.o. daily, metformin 500 mg p.o. b.i.d., omeprazole, pregabalin, vilazodone, did receive Humira (last dose three months ago, did not tolerate due to abdominal discomfort) Patient seen and examined at bedside. Headache has improved since admission. Does not complain of epigastric pain at this point. Objective vital signs Vital Sign Date Time Temp Pulse Resp B/P (MAP) Pulse Ox O2 Delivery O2 Flow Rate FiO2 02/13/24 05:00 98.4 64 20 101/56 (71) 95 98.4 02/12/24 20:00 Room Air* 0 21 Total Intake and Output 02/12/24 02/12/24 02/13/24 15:00 23:00 07:00 Intake Total 50 ml 800 ml 375 ml Output Total 550 ml Balance 50 ml 800 ml -175 ml medications Current Medications Medications Dose Ordered Sig/Alber Route Start Time Stop Time Status Last Admin Dose Admin Aspirin 81 mg DAILY PO 02/12/24 10:00 02/12/24 10:09 81 MG Ceftriaxone Sodium 50 ml @ 100 mls/hr DAILY@09 IV 02/12/24 09:00 02/12/24 09:10 100 MLS/HR Pantoprazole Sodium 40 mg DAILY IV 02/12/24 10:00 02/12/24 10:09 40 MG Diagnostic Test (Pha) 1 strip ACHS 02/11/24 22:00 02/13/24 06:19 1 STRIP Insulin Human Regular HS SC 02/11/24 22:00 02/12/24 21:45 4 UNITS Insulin Human Regular AC SC 02/12/24 07:00 02/13/24 06:24 3 UNITS Dextrose 50 ml UD PRN IV 02/11/24 17:15 Sodium Chloride 10 ml Q8HR IV 02/11/24 22:00 02/13/24 06:19 10 ML Acetaminophen/ Hydrocodone Bitart 1 tab Q4HP PRN PO 02/11/24 17:15 Hold 02/12/24 10:17 1 TAB Ondansetron HCl 4 mg Q4HP PRN IV 02/11/24 17:15 02/12/24 01:53 4 MG Docusate Sodium 100 mg BIDPRN PRN PO 02/11/24 17:15 02/12/24 21:52 100 MG Acetaminophen 650 mg Q6HP PRN PO 02/11/24 17:15 Hold 02/12/24 11:34 650 MG Nitroglycerin 0.4 mg Q5MINP PRN SL 02/11/24 17:15 Morphine Sulfate 2 mg Q30M PRN IV 02/11/24 17:15 02/12/24 04:37 2 MG Metronidazole 100 ml @ 100 mls/hr Q8HR IV 02/11/24 22:00 02/13/24 06:19 100 MLS/HR Ibuprofen 400 mg Q8HP PRN PO 02/12/24 16:30 02/13/24 00:49 400 MG Metoclopramide HCl 5 mg Q8HPRN PRN IV 02/12/24 16:30 02/12/24 16:48 5 MG Lactulose 30 ml BIDPRN PRN PO 02/13/24 08:45 Examination Patient lying in bed, in no acute distress General: Lucid, afebrile, mucosae are moist Cardiovascular: Normal S1 and S2. No murmurs, gallops or rubs Respiratory: Normal ventilation mechanics. Clear lung sounds on auscultation Abdomen: Soft, nontender, no organomegaly, normal bowel sounds. MSK/skin: Mobilizes 4 limbs. Skin is dry and warm Neurological: Oriented in 3 spheres. No motor no sensitive deficits. Pupils are isocoric and reactive laboratory and microbiology Laboratory Tests 02/12/24 04:16 Test 02/13/24 07:51 Range/Units Serum Glucose Pending Microbiology Date/Time Source Procedure Growth Status 02/11/24 16:39 Blood Blood Culture - Preliminary NO GROWTH AFTER 24 HOURS OF INCUBATION. Resulted Problem List/Assessment/Plan Problem List/Assessment/Plan Assessment Sepsis probably secondary to gastroenteritis versus unresolved sinusitis Epigastralgia probably secondary to Gastroenteritis Ruled out acute coronary syndrome Unresolved sinusitis Transaminitis Hypertension Diabetes Anxiety Depression Psoriatic arthritis Polyneuropathy Plan/Recommendation EKG shows normal sinus rhythm with bad progression of precordial R's, no ST alteration. Troponin negative x3, chest pain probable noncardiac (reproduces we will palpation, located more in epigastrium). Echocardiogram: LVEF 55%, grade 1 diastolic dysfunction. No abnormal wall motility. Maxillary CT: Minimal mucosal thickening along floor some maxillary sinuses, remaining per nasal sinuses are clear IV antibiotic per hospitalist GI consultation appreciated. Avoid hepatotoxic medication this point. (hold statins) Discussed case with Dr. Luo, patient and nurses: Patient has precordial pain impresses noncardiac, EKG shows no ST alteration in troponin negative x3, echocardiogram within normal limits Epigastric pain could be secondary to gastroenteritis versus gastritis. No further cardiological were per required during this admission. We will sign off the case. Reconsult if needed, thank you. Plan discussed with: Patient, Other (Nurses) My Orders My Orders Orders - JENNIFER BOUCHER Procedure Category Date Status Time Drug Screen LAB 02/12/24 Logged 16:05 Ibuprofen Tablet PHA 02/12/24 In Process (Motrin Tablet) 16:30 Metoclopramide PHA 02/12/24 In Process Injection (Reglan 16:30 Blood Culture KARL 02/12/24 In Process 16:45 Urine Bacterial KARL 02/12/24 Logged Culture 16:[address] 02/13/24 Taken 07:00 Echo 2d Mode Cardiac US 02/13/24 Logged DOP 16:05 Visit Coding Cardiology RES Date of Service: Feb 13, 2024 Billing Provider: FAMILIA LUO MD Cardiology Common Codes: 40202-QXD/OBS SAME DATE (High), [id number] CARE- EACH +30MIN JENNIFER BOUCHER RESIDENT Feb 13, 2024 08:55
[2024-02-13 09:13] LABS: Alanine Aminotransferase 490 U/L (7-40); Albumin 3.7 g/dL (3.2-4.8); Alkaline Phosphatase 180 U/L (46-116); Anion Gap 4 (5-15); Aspartate Aminotransferase 345 U/L (13-40); BUN/Creatinine Ratio 11.9 (10.0-20.0); Bilirubin, Total 0.5 mg/dL (0.2-1.0); Blood Urea Nitrogen 7 mg/dL (9-23); Calcium 9.2 mg/dL (8.7-10.4); Carbon Dioxide 25 mmol/L (20-31); Chloride 111 mmol/L (98-107); Glucose 148 mg/dL (74-106); Lipase 148 U/L (12-53); Potassium 3.7 mmol/L (3.5-5.1); Sodium 140 mmol/L (136-145); Total Protein 5.7 g/dL (5.7-8.2)
--- NOTE | 2024-02-13 09:31 | DVH ---
CT FACE HISTORY: Rule out Complicated sinus infection TECHNIQUE: Nonenhanced axial images through the facial bones with coronal and sagittal MPR. Radiation optimization: All CT scans at this facility use at least one of these dose optimization chasity hniques: automated exposure control mA and/or kV adjustment per patient size (includes targeted exam s where dose is matched to clinical indication) or iterative reconstruction. Radiation Dose Information: CT Dose: CTDI volume is 66.95 mGy. Dose-length product is 1547.4 mGy*cm Comparison: None. FINDINGS: There is minimal mucosal thickening along the floors of the maxillary sinuses. The paranasal sinuses and visualized mastoid air cells are otherwise clear. There is no air-fluid level. Bilateral ostiomea rabia units are patent. There are no significant chronic reactive osseous changes. The maxillofacial os seous structures appear intact. The facial soft tissues appear within normal limits. There is no sig nificant nasal septal deviation. IMPRESSION: 1. Minimal mucosal thickening along the floors of the maxillary sinuses. Remaining paranasal sinuses are clear. 2. Bilateral ostiomeatal units are patent. HS:Y
[2024-02-13] MEDS: POLYETHYLENE GLYCOL 17 GM PWDR PO ONE (09:32)
--- NOTE | 2024-02-13 09:48 | DVHPN2 ---
Progress Note - Dictate Date Seen: Feb 13, 2024 Medical Necessity Reason Pt with a Central, PICC or Fol: No Subjective Patient seen at bedside She has just returned from her chest x-ray which I ordered to evaluate her chest pain and sepsis Nurse reports that patient has moderate constipation and needs a laxative There was no nausea vomiting today Leukocytosis has improved Liver enzymes are trending down vital signs Vital Sign Date Time Temp Pulse Resp B/P (MAP) Pulse Ox O2 Delivery O2 Flow Rate FiO2 02/13/24 09:13 98.1 71 16 119/71 (87) 96 98.1 02/12/24 20:00 Room Air* 0 21 Total Intake and Output 02/12/24 02/12/24 02/13/24 14:59 22:59 06:59 Intake Total 50 ml 800 ml 375 ml Output Total 550 ml Balance 50 ml 800 ml -175 ml medications Current Medications Medications Dose Ordered Sig/Alber Route Start Time Stop Time Status Last Admin Dose Admin Aspirin 81 mg DAILY PO 02/12/24 10:00 02/13/24 09:32 81 MG Ceftriaxone Sodium 50 ml @ 100 mls/hr DAILY@09 IV 02/12/24 09:00 02/13/24 09:33 100 MLS/HR Pantoprazole Sodium 40 mg DAILY IV 02/12/24 10:00 02/13/24 09:32 40 MG Diagnostic Test (Pha) 1 strip ACHS 02/11/24 22:00 02/13/24 06:19 1 STRIP Insulin Human Regular HS SC 02/11/24 22:00 02/12/24 21:45 4 UNITS Insulin Human Regular AC SC 02/12/24 07:00 02/13/24 06:24 3 UNITS Dextrose 50 ml UD PRN IV 02/11/24 17:15 Sodium Chloride 10 ml Q8HR IV 02/11/24 22:00 02/13/24 06:19 10 ML Acetaminophen/ Hydrocodone Bitart 1 tab Q4HP PRN PO 02/11/24 17:15 Hold 02/12/24 10:17 1 TAB Ondansetron HCl 4 mg Q4HP PRN IV 02/11/24 17:15 02/12/24 01:53 4 MG Docusate Sodium 100 mg BIDPRN PRN PO 02/11/24 17:15 02/12/24 21:52 100 MG Acetaminophen 650 mg Q6HP PRN PO 02/11/24 17:15 Hold 02/12/24 11:34 650 MG Nitroglycerin 0.4 mg Q5MINP PRN SL 02/11/24 17:15 Morphine Sulfate 2 mg Q30M PRN IV 02/11/24 17:15 02/12/24 04:37 2 MG Metronidazole 100 ml @ 100 mls/hr Q8HR IV 02/11/24 22:00 02/13/24 06:19 100 MLS/HR Ibuprofen 400 mg Q8HP PRN PO 02/12/24 16:30 02/13/24 09:32 400 MG Metoclopramide HCl 5 mg Q8HPRN PRN IV 02/12/24 16:30 02/12/24 16:48 5 MG Lactulose 30 ml BIDPRN PRN PO 02/13/24 08:45 objective General: NAD, AAOX3 Chest: lung jama clear to auscultation Heart: RRR, no murmur Abdomen: non-distended, no tenderness to palpation, +BS laboratory and microbiology Laboratory Tests 02/13/24 07:51 02/12/24 04:16 Test 02/13/24 07:51 Range/Units Serum Glucose 148 H 74-106 mg/dL Liver ultrasound shows hepatic steatosis Chest x-ray is negative Maxillo facial CT IMPRESSION: 1. Minimal mucosal thickening along the floors of the maxillary sinuses. Remaining paranasal sinuses are clear. 2. Bilateral ostiomeatal units are patent. Problems(with codes): (1) Maxillary sinusitis (2) Elevated liver enzymes (3) Sepsis, unspecified organism (4) Generalized weakness (5) Chest pain of unknown etiology Prognosis Plan Continue to monitor labs Advance diet as tolerated Lactulose and MiraLax ordered, constipation likely due to [place] Check a COVID test Continue IV antibiotics Await hepatitis panel and CAMI I believe her current elevation in liver enzymes could be part of the systemic inflammatory response to her sepsis or viral syndrome Plan discussed with: Patient, Other (Nurse) MALINA WILCOX MD Feb 13, 2024 09:47
--- NOTE | 2024-02-13 10:29 | DVHPN2 ---
Reviewed: Care Plan, H&P, Labs, Medications, Previous Orders, Radiology Changes from previous H/P or p: No Changes Eyes: No Pain, No Vision change, No Conjunctivae inflammation, No Eyelid inflammation, No Other, No Redness ENT: No Ear pain, No Ear discharge, No Nose pain, No Nose discharge, No Nose congestion, No Mouth pain, No Mouth swelling, No Throat pain, No Throat swelling, No Other Cardiovascular: Chest Pain; No Palpitations, No Orthopnea, No Paroxysmal Noc. Dyspnea, No Edema, No Lt Headedness, No Other Respiratory: No Cough, No Dry; Shortness of breath; No SOB with excertion, No Wheezing, No Hemoptysis, No Pleuritic Pain, No Sputum, No Other Gastrointestinal: Nausea; No Vomiting, No Abdominal Pain, No Diarrhea, No Constipation, No Melena, No Hematochezia, No Other Genitourinary: No Dysuria, No Frequency, No Incontinence, No Hematuria, No Retention, No Other Musculoskeletal: No other, No neck pain, No shoulder pain, No arm pain, No back pain, No hand pain, No leg pain, No foot pain Skin: No Rash, No Lesions, No Jaundice, No Bruising, No Other Objective Vitals Vital Signs Date Time Temp Pulse Resp B/P (MAP) Pulse Ox O2 Delivery O2 Flow Rate FiO2 02/13/24 09:13 98.1 71 16 119/71 (87) 96 98.1 02/12/24 20:00 Room Air* 0 21 Intake/Output Intake and Output 02/13/24 07:00 Intake Total 1225 ml Output Total 550 ml Balance 675 ml Intake Oral 975 ml IV Total 250 ml Output Urine Total 550 ml # Voids 2 Medications Current Medications Medications Dose Ordered Sig/Alber Route Start Time Stop Time Status Last Admin Dose Admin Aspirin 81 mg DAILY PO 02/12/24 10:00 02/13/24 09:32 81 MG Ceftriaxone Sodium 50 ml @ 100 mls/hr DAILY@09 IV 02/12/24 09:00 02/13/24 09:33 100 MLS/HR Pantoprazole Sodium 40 mg DAILY IV 02/12/24 10:00 02/13/24 09:32 40 MG Diagnostic Test (Pha) 1 strip ACHS 02/11/24 22:00 02/13/24 06:19 1 STRIP Insulin Human Regular HS SC 02/11/24 22:00 02/12/24 21:45 4 UNITS Insulin Human Regular AC SC 02/12/24 07:00 02/13/24 06:24 3 UNITS Dextrose 50 ml UD PRN IV 02/11/24 17:15 Sodium Chloride 10 ml Q8HR IV 02/11/24 22:00 02/13/24 06:19 10 ML Acetaminophen/ Hydrocodone Bitart 1 tab Q4HP PRN PO 02/11/24 17:15 Hold 02/12/24 10:17 1 TAB Ondansetron HCl 4 mg Q4HP PRN IV 02/11/24 17:15 02/12/24 01:53 4 MG Docusate Sodium 100 mg BIDPRN PRN PO 02/11/24 17:15 02/12/24 21:52 100 MG Acetaminophen 650 mg Q6HP PRN PO 02/11/24 17:15 Hold 02/12/24 11:34 650 MG Nitroglycerin 0.4 mg Q5MINP PRN SL 02/11/24 17:15 Morphine Sulfate 2 mg Q30M PRN IV 02/11/24 17:15 02/12/24 04:37 2 MG Metronidazole 100 ml @ 100 mls/hr Q8HR IV 02/11/24 22:00 02/13/24 06:19 100 MLS/HR Ibuprofen 400 mg Q8HP PRN PO 02/12/24 16:30 02/13/24 09:32 400 MG Metoclopramide HCl 5 mg Q8HPRN PRN IV 02/12/24 16:30 02/12/24 16:48 5 MG Lactulose 30 ml BIDPRN PRN PO 02/13/24 08:45 Laboratory Results Laboratory Tests 02/12/24 04:16 02/13/24 07:51 Chemistry Test 02/12/24 14:39 02/12/24 16:45 02/13/24 07:51 Albumin 3.8 g/dL (3.2-4.8) 3.7 g/dL (3.2-4.8) Calcium Level 9.7 mg/dL (8.7-10.4) 9.2 mg/dL (8.7-10.4) Total Protein 6.1 g/dL (5.7-8.2) 5.7 g/dL (5.7-8.2) Magnesium Level 1.9 mg/dL (1.6-2.6) Phosphorus Level 1.9 mg/dL (2.4-5.1) L Coagulation Test 02/12/24 14:34 Prothrombin Time 11.2 sec (9.3-11.8) Prothrombin Time INR 1.06 (0.9-1.15) Activated Partial Thromboplast Time 23.0 SEC (24.5-34.5) L Lipid panel Test 02/12/24 16:45 02/13/24 07:51 Cholesterol Level 102 mg/dL (< 200) HDL Cholesterol 52 mg/dL (40-59) Triglycerides Level 72 mg/dL (< 150) Lipase 148 U/L (12-53) H LFT Test 02/12/24 14:39 02/13/24 07:51 Alanine Aminotransferase (ALT) 730 U/L (7-40) H 490 U/L (7-40) H Alkaline Phosphatase 202 U/L (46-116) H 180 U/L (46-116) H Aspartate Amino Transferase (AST) 1035 U/L (13-40) H 345 U/L (13-40) H Total Bilirubin 1.0 mg/dL (0.2-1.0) 0.5 mg/dL (0.2-1.0) HgA1c, TSH Test 02/12/24 16:45 Hemoglobin A1c 6.9 % A1C (<5.7) H Thyroid Stimulating Hormone (TSH) 1.08 uIU/mL (0.55-4.78) Urinalysis Test 02/11/24 20:04 Urine Color Yellow (Yellow) Urine Clarity Clear (Clear) Urine pH 5.0 (5.0-9.0) Urine Specific [place] 1.039 (1.001-1.035) Urine Protein Negative (Negative) Urine Ketones 1+ (Negative) H Urine Blood Negative /uL (Negative) Urine Nitrite Negative (Negative) Urine Bilirubin 2+ (Negative) H Urine Urobilinogen Normal mg/dL (Negative) Urine Leukocyte Esterase Negative /uL (Negative) Urine RBC 1 /hpf (0 - 4) Urine WBC 1 /hpf (0 - 5) Urine Squamous Epithelial Cells Few /hpf (<5) Urine Bacteria None seen /hpf (None Seen) Urine Glucose 4+ mg/dL (Normal) H Microbiology Microbiology Date/Time Source Procedure Growth Status 02/11/24 16:39 Blood Blood Culture - Preliminary NO GROWTH AFTER 24 HOURS OF INCUBATION. Resulted Labs and/or images reviewed: Labs reviewed by me, Image(s) reviewed by me Assessment/Plan Assessment/Plan Chest Pain negative troponins, consult for Dr Luo appreciated echocardiogram pending Anxiety Depression Diabetes Elevated liver enzymes: CT abdomen pelvis shows ileocolitis and evidence of cholecystectomy, GI consult by Dr. Adair Huerta appreciated Acute lactic acidosis Dehydration Acute gastroenteritis History of cholecystectomy Time spent 50 minutes Plan discussed with: Patient My Orders Orders - MARIELENA JONES MD Procedure Category Date Status Time * [facility] [employer] [employer] CONS 02/12/24 Transmitted 13:20 * Cardiology Consult CONS 02/12/24 Transmitted 13:22 LIVER US 02/12/24 Resulted 13:46 Acute Hepatitis Panel LAB 02/12/24 In Process 13:46 Date of Service: Feb 13, 2024 Billing Provider: MARIELENA JONES MD Common Visit Codes: [id number] INP/OBS CARE(HIGH) MARIELENA JONES MD Feb 13, 2024 10:29
--- NOTE | 2024-02-13 13:50 | DVHSR ---
APPROVED REPORT EXAM: Two-dimensional and M-mode echocardiogram with Doppler and color Doppler. Blood Pressure: 101/56 mmHg INDICATION Chest Pain RISK FACTORS Height: 68, Weight: 246 DIMENSIONS LVDd4.5 (3.8-5.7cm)LA (2D)3.7 (1.9-4.0cm)Aortic Root3.5 (2.0-3.7cm) LVDs2.9 (2.5-4.0cm)LA (MM) (1.9-4.0cm)Aortic Cusp Exc2.1 (1.5-2.0cm) EF (%) 65.0 (55-70%)Rt. Atrium3.5 (1.9-4.0cm)Asc. Aorta cm IVSd1.2 (0.7-1.1cm)RV (D) (1.8-2.4cm) PWd1.3 (0.7-1.1cm) Mitral Valve MitralMitral Stenosis E wave0.87m/sMV Mean GR.mmHg A wave0.96m/sMV Peak GR.mmHg E/A ratio0.92D MVAcm2 DECEL [id number] 1/2 [id number] IVRTmsDop MVA3.46cm2 Aortic Valve Aortic ValveAortic Stenosis V10.90m/Chris Mean GR.4mmHg V21.37m/Chris Peak GR.7mmHg LVOT Diameter2.3 (1.8-2.4cm)Doppler AVA2.73cm2 Pulmonic Valve V21.24m/s Conclusion Normal left ventricular size and dimension. Normal left ventricular systolic function estimated ejec tion fraction 55%. There is a grad 1 diastolic dysfunction. Normal right ventricular size and dimension. Normal right ventricular systolic functio, Normal biatrial size and dimension. Normal aortic valve structure and function. Normal mitral Valve structure and function Normal tricuspid valve structure and function. The pulmonary valve grossly normal. No pericardial effusion.
[2024-02-13] MEDS: HYDROcodone-ACET 5/325MG TAB PO PRN (15:04)
[2024-02-14] VITALS (7 sets, daily range): BP systolic 113–141; BP diastolic 55–96; PULSE 64–85; RESP 16–20; TEMP 98.4–98.8; O2SAT 92–98
[2024-02-14 02:25] LABS: Amphetamine Screen, Urine Neg (NEGATIVE); Barbiturate Scree,Urine Neg (NEGATIVE); Benzodiazephine Screen, Urine Neg (NEGATIVE); Cannabinoid Screen, Urine Pos (NEGATIVE); Cocaine Screen, Urine Neg (NEGATIVE); Opiate Scree,Urine Neg (NEGATIVE); Phencyclidine Screen, Urine Neg (NEGATIVE)
[2024-02-14 02:39] LABS: COVID19 ANTIGEN SOFIA FIA NEGATIVE (NEGATIVE)
[2024-02-14 08:22] LABS: Basophils # (auto) 0 10 ^3/uL (0-0.2); Basophils % (auto) 0.6 % (0.0-2.0); Eosinophils # (auto) 0.2 10 ^3/uL (0-0.8); Eosinophils % (auto) 3.5 % (0.0-7.0); Hemoglobin 14.6 g/dL (12.2-16.2); Lymphocytes # (auto) 2.1 10 ^3/uL (0.4-5.4); Lymphocytes % (auto) 32.6 % (10.0-50.0); Mean Corpuscular Hemoglobin 30.4 pg (28.0-32.0); Mean Corpuscular Volume 89.2 fL (80.0-100.0); Monocytes # (auto) 0.6 10 ^3/uL (0-1.3); Monocytes % (auto) 9.8 % (0.0-12.0); Neutrophils # (auto) 3.4 10 ^3/uL (1.6-8.6); Neutrophils % (auto) 53.5 % (37.0-80.0); Platelet Count (auto) 181 10^3/uL (140-450); Red Blood Cells 4.82 10^6/uL (4.0-5.20); Red Cell Distribution Width 15.2 % (11.8-14.3); White Blood Cell 6.4 10^3/uL (4.4-10.8)
[2024-02-14 08:50] LABS: Alanine Aminotransferase 325 U/L (7-40); Albumin 3.7 g/dL (3.2-4.8); Alkaline Phosphatase 159 U/L (46-116); Aspartate Aminotransferase 105 U/L (13-40); BUN/Creatinine Ratio 11.5 (10.0-20.0); Bilirubin, Total 0.4 mg/dL (0.2-1.0); Blood Urea Nitrogen 7 mg/dL (9-23); Calcium 9.6 mg/dL (8.7-10.4); Carbon Dioxide 26 mmol/L (20-31); Glucose 155 mg/dL (74-106); Potassium 4.1 mmol/L (3.5-5.1); Sodium 143 mmol/L (136-145)
[2024-02-14 09:07] LABS: Anion Gap 7 (5-15); Chloride 110 mmol/L (98-107)
[2024-02-14 09:29] LABS: Hepatitis B Surface Antigen Negative (Negative)
--- NOTE | 2024-02-14 09:32 | DVHPN2 ---
Reviewed: Care Plan, H&P, Labs, Medications, Previous Orders, Radiology Changes from previous H/P or p: No Changes Eyes: No Pain, No Vision change, No Conjunctivae inflammation, No Eyelid inflammation, No Other, No Redness ENT: No Ear pain, No Ear discharge, No Nose pain, No Nose discharge, No Nose congestion, No Mouth pain, No Mouth swelling, No Throat pain, No Throat swelling, No Other Cardiovascular: Chest Pain; No Palpitations, No Orthopnea, No Paroxysmal Noc. Dyspnea, No Edema, No Lt Headedness, No Other Respiratory: No Cough, No Dry; Shortness of breath; No SOB with excertion, No Wheezing, No Hemoptysis, No Pleuritic Pain, No Sputum, No Other Gastrointestinal: Nausea; No Vomiting, No Abdominal Pain, No Diarrhea, No Constipation, No Melena, No Hematochezia, No Other Genitourinary: No Dysuria, No Frequency, No Incontinence, No Hematuria, No Retention, No Other Musculoskeletal: No other, No neck pain, No shoulder pain, No arm pain, No back pain, No hand pain, No leg pain, No foot pain Skin: No Rash, No Lesions, No Jaundice, No Bruising, No Other Objective Vitals Vital Signs Date Time Temp Pulse Resp B/P (MAP) Pulse Ox O2 Delivery O2 Flow Rate FiO2 02/14/24 07:41 98.7 75 18 130/86 (101) 98 98.7 02/13/24 20:00 Room Air* 0 21 Intake/Output Intake and Output 02/14/24 07:00 Intake Total 2290 ml Output Total 500 ml Balance 1790 ml Intake Oral 1940 ml IV Total 350 ml Output Urine Total 500 ml # Voids 8 # Bowel Movements 1 Medications Current Medications Medications Dose Ordered Sig/Alber Route Start Time Stop Time Status Last Admin Dose Admin Aspirin 81 mg DAILY PO 02/12/24 10:00 02/14/24 08:10 81 MG Ceftriaxone Sodium 50 ml @ 100 mls/hr DAILY@09 IV 02/12/24 09:00 02/14/24 09:09 100 MLS/HR Pantoprazole Sodium 40 mg DAILY IV 02/12/24 10:00 02/14/24 08:09 40 MG Diagnostic Test (Pha) 1 strip ACHS 02/11/24 22:00 02/14/24 06:16 1 STRIP Insulin Human Regular HS SC 02/11/24 22:00 02/13/24 21:16 3 UNITS Insulin Human Regular AC SC 02/12/24 07:00 02/13/24 17:52 3 UNITS Dextrose 50 ml UD PRN IV 02/11/24 17:15 Sodium Chloride 10 ml Q8HR IV 02/11/24 22:00 02/14/24 06:11 10 ML Ondansetron HCl 4 mg Q4HP PRN IV 02/11/24 17:15 02/12/24 01:53 4 MG Docusate Sodium 100 mg BIDPRN PRN PO 02/11/24 17:15 02/13/24 17:47 100 MG Acetaminophen 650 mg Q6HP PRN PO 02/11/24 17:15 Hold 02/12/24 11:34 650 MG Nitroglycerin 0.4 mg Q5MINP PRN SL 02/11/24 17:15 Morphine Sulfate 2 mg Q30M PRN IV 02/11/24 17:15 02/12/24 04:37 2 MG Metronidazole 100 ml @ 100 mls/hr Q8HR IV 02/11/24 22:00 02/14/24 06:10 100 MLS/HR Ibuprofen 400 mg Q8HP PRN PO 02/12/24 16:30 02/14/24 08:10 400 MG Metoclopramide HCl 5 mg Q8HPRN PRN IV 02/12/24 16:30 02/12/24 16:48 5 MG Lactulose 30 ml BIDPRN PRN PO 02/13/24 08:45 Acetaminophen/ Hydrocodone Bitart 1 tab Q4HP PRN PO 02/13/24 14:45 02/14/24 03:55 1 TAB Laboratory Results Laboratory Tests 02/14/24 08:13 Chemistry Test 02/14/24 08:13 Albumin 3.7 g/dL (3.2-4.8) Calcium Level 9.6 mg/dL (8.7-10.4) Total Protein 6.0 g/dL (5.7-8.2) LFT Test 02/14/24 08:13 Alanine Aminotransferase (ALT) 325 U/L (7-40) H Alkaline Phosphatase 159 U/L (46-116) H Aspartate Amino Transferase (AST) 105 U/L (13-40) H Total Bilirubin 0.4 mg/dL (0.2-1.0) Urinalysis Test 02/11/24 20:04 Urine Color Yellow (Yellow) Urine Clarity Clear (Clear) Urine pH 5.0 (5.0-9.0) Urine Specific [place] 1.039 (1.001-1.035) Urine Protein Negative (Negative) Urine Ketones 1+ (Negative) H Urine Blood Negative /uL (Negative) Urine Nitrite Negative (Negative) Urine Bilirubin 2+ (Negative) H Urine Urobilinogen Normal mg/dL (Negative) Urine Leukocyte Esterase Negative /uL (Negative) Urine RBC 1 /hpf (0 - 4) Urine WBC 1 /hpf (0 - 5) Urine Squamous Epithelial Cells Few /hpf (<5) Urine Bacteria None seen /hpf (None Seen) Urine Glucose 4+ mg/dL (Normal) H Microbiology Microbiology Date/Time Source Procedure Growth Status 02/13/24 11:18 Stool Stool Culture - Preliminary Resulted 02/13/24 11:18 Stool Shiga Toxin I & II - Final Resulted 02/13/24 11:18 Stool Clostridium difficile Toxin Assay Pending Resulted 02/12/24 18:27 Blood Blood Culture - Preliminary NO GROWTH AFTER 24 HOURS OF INCUBATION. Resulted Labs and/or images reviewed: Labs reviewed by me, Image(s) reviewed by me Assessment/Plan Assessment/Plan Chest Pain negative troponins, consult for Dr Luo appreciated echocardiogram 55% ejection fraction Anxiety Depression Diabetes Elevated liver enzymes: CT abdomen pelvis shows ileocolitis and evidence of cholecystectomy, GI consult by Dr. Adair Hureta appreciated Acute lactic acidosis Dehydration Severe headache secondary to acute sinusitis: Augmentin 875 mg p.o. b.i.d. [place] p.r.n. COVID ruled out Acute gastroenteritis History of cholecystectomy Time spent 50 minutes Plan discussed with: Patient My Orders Orders - MARIELENA JONES MD Procedure Category Date Status Time Hydrocodone-Acet PHA 02/13/24 In Process 5/325mg Tab ([place] 14:45 Date of Service: Feb 14, 2024 Billing Provider: MARIELENA JONES MD Common Visit Codes: [id number] INP/OBS CARE(HIGH) MARIELENA JONES MD Feb 14, 2024 09:32
[2024-02-14 09:49] LABS: Hepatitis A Ab IgM Negative
[2024-02-14 09:50] LABS: Hepatitis B Core IgM Negative; Hepatitis C Antibody Negative (Negative)
[2024-02-14] MEDS: AMOXICILLIN/CLAVUL 875 MG TAB PO SCH (10:21)
[2024-02-14] MEDS: LACTULOSE 20Gm/30ML SOLN PO PRN (14:58)
--- NOTE | 2024-02-14 22:12 | DVHPN2 ---
Progress Note - Dictate Date Seen: Feb 14, 2024 Medical Necessity Reason Pt with a Central, PICC or Fol: No Subjective Patient seen at bedside Patient is sleeping comfortably There was no nausea vomiting today There was one recorded bowel movement today Leukocytosis has improved Liver enzymes are trending down Hepatitis panel and CAMI are negative vital signs Vital Sign Date Time Temp Pulse Resp B/P (MAP) Pulse Ox O2 Delivery O2 Flow Rate FiO2 02/14/24 21:00 98.8 85 16 138/55 (82) 96 98.8 02/14/24 08:00 Room Air* 0 21 Total Intake and Output 02/13/24 02/13/24 02/14/24 14:59 22:59 06:59 Intake Total 150 ml 1200 ml 940 ml Output Total 500 ml Balance 150 ml 1200 ml 440 ml medications Current Medications Medications Dose Ordered Sig/Alber Route Start Time Stop Time Status Last Admin Dose Admin Aspirin 81 mg DAILY PO 02/12/24 10:00 02/14/24 08:10 81 MG Ceftriaxone Sodium 50 ml @ 100 mls/hr DAILY@09 IV 02/12/24 09:00 Hold 02/14/24 09:09 100 MLS/HR Pantoprazole Sodium 40 mg DAILY IV 02/12/24 10:00 02/14/24 08:09 40 MG Diagnostic Test (Pha) 1 strip ACHS 02/11/24 22:00 02/14/24 20:56 1 STRIP Insulin Human Regular HS SC 02/11/24 22:00 02/14/24 20:55 2 UNITS Insulin Human Regular AC SC 02/12/24 07:00 02/14/24 17:00 3 UNITS Dextrose 50 ml UD PRN IV 02/11/24 17:15 Sodium Chloride 10 ml Q8HR IV 02/11/24 22:00 02/14/24 20:44 10 ML Ondansetron HCl 4 mg Q4HP PRN IV 02/11/24 17:15 02/12/24 01:53 4 MG Docusate Sodium 100 mg BIDPRN PRN PO 02/11/24 17:15 02/13/24 17:47 100 MG Acetaminophen 650 mg Q6HP PRN PO 02/11/24 17:15 Hold 02/12/24 11:34 650 MG Nitroglycerin 0.4 mg Q5MINP PRN SL 02/11/24 17:15 Morphine Sulfate 2 mg Q30M PRN IV 02/11/24 17:15 02/12/24 04:37 2 MG Metronidazole 100 ml @ 100 mls/hr Q8HR IV 02/11/24 22:00 02/14/24 20:44 100 MLS/HR Ibuprofen 400 mg Q8HP PRN PO 02/12/24 16:30 02/14/24 16:54 400 MG Metoclopramide HCl 5 mg Q8HPRN PRN IV 02/12/24 16:30 02/12/24 16:48 5 MG Lactulose 30 ml BIDPRN PRN PO 02/13/24 08:45 02/14/24 14:58 30 ML Acetaminophen/ Hydrocodone Bitart 1 tab Q4HP PRN PO 02/13/24 14:45 02/14/24 18:49 1 TAB Amoxicillin/ Clavulanate Potassium 875 mg Q12HR PO 02/14/24 10:00 02/14/24 20:45 875 MG objective General: NAD, AAOX3 Chest: lung jama clear to auscultation Heart: RRR, no murmur Abdomen: non-distended, no tenderness to palpation, +BS laboratory and microbiology Laboratory Tests 02/14/24 08:13 Test 02/14/24 08:13 Range/Units Serum Glucose 155 H 74-106 mg/dL Problems(with codes): (1) Elevated liver enzymes (2) Maxillary sinusitis (3) Generalized weakness (4) Sepsis, unspecified organism (5) Uncontrolled diabetes mellitus Prognosis PLAN Patient's stool for WBC is negative which points against infectious or inflammatory colitis Continue to monitor labs Advance diet as tolerated Lactulose and MiraLax ordered, constipation likely due to [place] COVID test is negative Continue IV antibiotics hepatitis panel and CAMI negative I believe her current elevation in liver enzymes could be part of the systemic inflammatory response to her sepsis or viral syndrome Plan discussed with: Other (Nurse) MALINA WILCOX MD Feb 14, 2024 22:12
[2024-02-15 01:00] VITALS: BP 131/77; PULSE 69; RESP 18; TEMP 98.2; O2SAT 97
[2024-02-15 05:00] VITALS: BP 133/85; PULSE 83; RESP 18; TEMP 98.4; O2SAT 96
[2024-02-15 08:00] VITALS: PULSE 66
[2024-02-15 09:00] VITALS: BP 116/63; PULSE 71; RESP 17; TEMP 98; O2SAT 97
[2024-02-15] MEDS ORDERED: PANT40T PO (10:07)
[2024-02-15] MEDS ORDERED: AUG875T PO (10:07)
[2024-02-15] MEDS ORDERED: METR-344 PO (10:07)
--- NOTE | 2024-02-15 10:11 | DVHDS2 ---
Discharge Summary Date of Admission Feb 11, 2024 at 17:02 Date of Discharge: Feb 15, 2024 Admitting Diagnosis Gastroenteritis Wounds: None Labs/Diagnostic Data: Laboratory Results Test 02/15/24 05:41 02/14/24 08:13 02/14/24 01:05 02/13/24 22:30 POC Glucose 125 mg/dl (70-106) White Blood Count 6.4 10^3/uL (4.4-10.8) Red Blood Count 4.82 10^6/uL (4.0-5.20) Hemoglobin 14.6 g/dL (12.2-16.2) Hematocrit 43.0 % (36.0-46.0) Mean Corpuscular Volume 89.2 fL (80.0-100.0) Mean Corpuscular Hemoglobin 30.4 pg (28.0-32.0) Mean Corpuscular Hemoglobin Concent 34.0 g/dL (32.0-36.0) Red Cell Distribution Width 15.2 % (11.8-14.3) Platelet Count 181 10^3/uL (140-450) Mean Platelet Volume 8.8 fL (6.9-10.8) Neutrophils (%) (Auto) 53.5 % (37.0-80.0) Lymphocytes (%) (Auto) 32.6 % (10.0-50.0) Monocytes (%) (Auto) 9.8 % (0.0-12.0) Eosinophils (%) (Auto) 3.5 % (0.0-7.0) Basophils (%) (Auto) 0.6 % (0.0-2.0) Neutrophils # (Auto) 3.4 10 ^3/uL (1.6-8.6) Lymphocytes # (Auto) 2.1 10 ^3/uL (0.4-5.4) Monocytes # (Auto) 0.6 10 ^3/uL (0-1.3) Eosinophils # (Auto) 0.2 10 ^3/uL (0-0.8) Basophils # (Auto) 0 10 ^3/uL (0-0.2) Nucleated Red Blood Cells 0.0 % Sodium Level 143 mmol/L (136-145) Potassium Level 4.1 mmol/L (3.5-5.1) Chloride Level 110 mmol/L (98-107) Carbon Dioxide Level 26 mmol/L (20-31) Anion Gap 7 (5-15) Blood Urea Nitrogen 7 mg/dL (9-23) Creatinine 0.61 mg/dL (0.550-1.02) Glomerular Filtration Rate Calc 105 mL/min (>90) BUN/Creatinine Ratio 11.5 (10.0-20.0) Serum Glucose 155 mg/dL (74-106) Calcium Level 9.6 mg/dL (8.7-10.4) Total Bilirubin 0.4 mg/dL (0.2-1.0) Aspartate Amino Transferase (AST) 105 U/L (13-40) Alanine Aminotransferase (ALT) 325 U/L (7-40) Alkaline Phosphatase 159 U/L (46-116) Total Protein 6.0 g/dL (5.7-8.2) Albumin 3.7 g/dL (3.2-4.8) Urine Opiates Screen Neg (NEGATIVE) Urine Fentanyl Screen Neg (NEGATIVE) Urine Barbiturates Screen Neg (NEGATIVE) Urine Phencyclidine Screen Neg (NEGATIVE) Urine Amphetamines Screen Neg (NEGATIVE) Urine Benzodiazepines Screen Neg (NEGATIVE) Urine Cocaine Screen Neg (NEGATIVE) Urine Cannabinoids Screen Pos (NEGATIVE) SARS-CoV-2 Antigen (Rapid) Negative (NEGATIVE) Test 02/13/24 11:18 02/13/24 10:41 02/13/24 07:51 02/12/24 16:45 Stool for White Cells None seen Anti-Nuclear Antibody Screen Negative (Negative) Ferritin 81.0 ng/mL (10-291) Lipase 148 U/L (12-53) Hemoglobin A1c 6.9 % A1C (<5.7) Lactic Acid Level 1.5 mmol/L (0.4-2.0) Phosphorus Level 1.9 mg/dL (2.4-5.1) Magnesium Level 1.9 mg/dL (1.6-2.6) Ammonia 10 umol/L (11-32) Triglycerides Level 72 mg/dL (< 150) Cholesterol Level 102 mg/dL (< 200) LDL Cholesterol 29 mg/dL (< 100) HDL Cholesterol 52 mg/dL (40-59) Vitamin B12 Level 1456 pg/mL (211-911) Vitamin D 25-Hydroxy 55.2 ng/mL (30.0-100) Thyroid Stimulating Hormone (TSH) 1.08 uIU/mL (0.55-4.78) Test 02/12/24 14:39 02/12/24 14:34 02/11/24 20:04 02/11/24 16:10 Acetaminophen Level 9.0 UG/ML (10.0-20.0) Hepatitis A IgM Antibody Negative Hepatitis B Surface Antigen Negative (Negative) Hepatitis B Core IgM Antibody Negative Hepatitis C Antibody Negative (Negative) Prothrombin Time 11.2 sec (9.3-11.8) Prothrombin Time INR 1.06 (0.9-1.15) Activated Partial Thromboplast Time 23.0 SEC (24.5-34.5) Urine Color Yellow (Yellow) Urine Clarity Clear (Clear) Urine pH 5.0 (5.0-9.0) Urine Specific [place] 1.039 (1.001-1.035) Urine Protein Negative (Negative) Urine Ketones 1+ (Negative) Urine Blood Negative /uL (Negative) Urine Nitrite Negative (Negative) Urine Bilirubin 2+ (Negative) Urine Urobilinogen Normal mg/dL (Negative) Urine Leukocyte Esterase Negative /uL (Negative) Urine RBC 1 /hpf (0 - 4) Urine WBC 1 /hpf (0 - 5) Urine Squamous Epithelial Cells Few /hpf (<5) Urine Bacteria None seen /hpf (None Seen) Urine Glucose 4+ mg/dL (Normal) Troponin I High Sensitivity < 3 ng/L (</=34) Other Laboratory Tests 02/14/24 08:13 Brief Hx & Hospital Course: 58-year-old female with a history of depression diabetes anxiety came in complaining of abdominal pain nausea and chest pain. Troponin negative x3 echo 55 percent ejection fraction cardiology consult by Dr. Luo noncardiac chest pain. Patient had elevated liver enzymes CT abdomen pelvis without contrast showed ileocolitis and previous history of cholecystectomy GI Dr. Huerta was consulted placed on Flagyl also had sinusitis placed on Augmentin. She feels better with the no nausea no chest pain or shortness of breath or abdominal pain discharged home. Prescription transmitted to the pharmacy. Consults/Reason for consult GI Dr. Adair Huerta Operations or Procedures UTI abdomen pelvis without contrast Condition at Discharge: Fair Final Diagnosis/Problems List Chest Pain negative troponins, consult for Dr Luo appreciated echocardiogram 55% ejection fraction Anxiety Depression Diabetes Elevated liver enzymes: CT abdomen pelvis shows ileocolitis and evidence of cholecystectomy, GI consult by Dr. Adair Huerta appreciated Acute lactic acidosis Dehydration Severe headache secondary to acute sinusitis: Augmentin 875 mg p.o. b.i.d. [place] p.r.n. COVID ruled out Acute gastroenteritis History of cholecystectomy Discharge Disposition: Home Discharge Instruct/Medications Diet: Regular Activity: Light activity Follow Up/Referral: Follow up with the primary Dr in one week Medications: Flagyl Augmentin Pantoprazole Transmitted to pharmacy 35 (Time Taken for discharge summary 35 minutes) Discharge Statement: "Patient was advised to return to the ER or call 911 if any headaches, dizziness, shortness of breath, chest pain, abdominal pain, bleeding, fevers, or worsening of medical condition. Patient was counseled about treatment plan, medications, possible side effects, patientverbalized understanding. All questions were answered to the best of my ability. This discharge took greater then 30 minutes in planning, reviewing documentation, counseling the patient, and discussing with other team members." ASSESSMENT ASSESSMENT Hospital Course Improved Assessment Chest Pain negative troponins, consult for Dr Luo appreciated echocardiogram 55% ejection fraction Anxiety Depression Diabetes Elevated liver enzymes: CT abdomen pelvis shows ileocolitis and evidence of cholecystectomy, GI consult by Dr. Adair Huerta appreciated Acute lactic acidosis Dehydration Severe headache secondary to acute sinusitis: Augmentin 875 mg p.o. b.i.d. [place] p.r.n. COVID ruled out Acute gastroenteritis History of cholecystectomy Date of Service: Feb 15, 2024 Billing Provider: MARIELENA JONES MD Common Visit Codes: 08493-RAG/OBS DISCH DAY >30min MARIELENA JONES MD Feb 15, 2024 10:11
== END 2024-02-15 12:37 | disposition home or self-care (01) | DRG 720 ==
LOC: EDBD 12:04 → ER 12:04 → TELE 17:02 → TELE-E-ADS 02-12 13:09
PROVIDERS: ADMIT Nurse Practitioner Family; ATTEND Family Medicine
DX: A41.9 Sepsis, unspecified organism (principal); E87.21 Acute metabolic acidosis; L40.50 Arthropathic psoriasis, unspecified; E11.42 Type 2 diabetes mellitus with diabetic polyneuropathy; J01.90 Acute sinusitis, unspecified; A09 Infectious gastroenteritis and colitis, unspecified; E11.65 Type 2 diabetes mellitus with hyperglycemia; Z20.822 Contact with and (suspected) exposure to COVID-19; R74.01 Elevation of levels of liver transaminase levels; I10 Essential (primary) hypertension; F41.9 Anxiety disorder, unspecified; F32.A Depression, unspecified; E86.0 Dehydration; Z90.49 Acquired absence of other specified parts of digestive tract; Z63.4 Disappearance and death of family member; Z82.49 Family history of ischemic heart disease and other diseases of the circulatory system
CPT/HCPCS: 36415; 70487; 71046; 74176; 76705; 80048; 80053; 80061; 80074; 80307; 80329; 81001; 82140; 82306; 82607; 82728; 82962; 83036; 83605; 83690; 83735; 84100; 84443; 84484; 85025; 85048; 85610; 85730; 86038; 87040; 87045; 87426; 87427; 87493; 93005; 93306; 99291; G0378; J1815; J2405; J2470; J3490